=== PATIENT | male | born 1985 | race Caucasian/White ===

== ENCOUNTER 2017-04-12 19:10 | Emergency (ER) | payer SELFPAY ==
[~2017-04-12] VITALS: Ht 182.9 cm; Wt 111.0 kg
[2017-04-12] MEDS ORDERED: SODIUM CHLORIDE 0.9% 1,000 ML IV ONE (19:48)
[2017-04-12 20:12] LABS: BASOPHILS % 0.2 % (0.0-2.0); EOSINOPHILS % 0.2 % (0.0-5.0); HEMATOCRIT. 44.7 % (42.0-52.0); HEMOGLOBIN. 15.8 g/dL (14.0-18.0); LYMPHOCYTES % 42.9 % (20.0-50.0); MEAN CORPUSCULAR HEMOGLOBIN 31.1 pg (28.0-32.0); MEAN PLATELET VOLUME 7.8 fl (7.4-10.4); MONOCYTES % 7.7 % (2.0-8.0); PLATELET 129 x1000/uL (130-400); RED BLOOD CELL COUNT 5.08 mill/uL (4.7-6.1); RED CELL DISTRIBUTION WIDTH 13.7 % (11.6-14.6)
[2017-04-12 20:16] LABS: CHLORIDE 109 mEq/L (98-107)
[2017-04-12 20:17] LABS: INR 1.1; PROTHROMBIN TIME 11.9 sec
[2017-04-12 20:26] LABS: CARBON DIOXIDE 26 mEq/L (21-32); CREATINE KINASE 336 IU/L (39-308)
[2017-04-12 20:27] LABS: PHENOBARBITAL < 2.1 ug/mL (15.0-40.0); PHENYTOIN < 0.4 ug/mL (10-20); VALPROIC ACID < 3.0 ug/mL (50-100)
[2017-04-12 20:30] LABS: CARBAMAZEPINE < 0.5 ug/mL (4-12); ETHANOL BLOOD 459 mg/dL
[2017-04-12] MEDS ORDERED: POTASSIUM CHLORIDE 20MEQ TABLET SR PO ONE (22:00)
[2017-04-12] MEDS ORDERED: SODIUM CHLORIDE 0.9% 1000ML BAG (SEPSIS BOLUS) IV ONE (23:15)
[2017-04-12 23:43] LABS: CLARITY URINE CLEAR (CLEAR); COLOR URINE YELLOW (YELLOW); GLUCOSE URINE NEGATIVE (NEGATIVE); KETONES URINE NEGATIVE (NEGATIVE); LEUKOCYTE ESTERASE URINE NEGATIVE (NEGATIVE); NITRITE URINE NEGATIVE (NEGATIVE); OCCULT BLOOD URINE NEGATIVE (NEGATIVE); PH URINE 7.5 (4.5-8.0); PROTEIN URINE NEGATIVE (NEGATIVE)
[2017-04-13] MEDS ORDERED: ACETAMINOPHEN 325MG TABLET PO ONE (00:15)
[2017-04-13] MEDS ORDERED: PHENYTOIN SODIUM 1,000 MG in SODIUM CHLORIDE 0.9% 100 ML IV ONE (00:15)
[2017-04-13 00:25] VITALS: BP 117/75
[2017-04-13 00:25] LABS: *AMPHETAMINES SCREEN URINE NEGATIVE (NEGATIVE); *BARBITURATES SCREEN URINE NEGATIVE (NEGATIVE); *BENZODIAZEPINES SCREEN URINE NEGATIVE (NEGATIVE); *COCAINE SCREEN URINE NEGATIVE (NEGATIVE); CANNABINOID URINE SCREEN NEGATIVE (NEGATIVE); METHADONE URINE SCREEN NEGATIVE (NEGATIVE); OPIATES URINE SCREEN NEGATIVE (NEGATIVE); PHENCYCLIDINE URINE SCREEN NEGATIVE (NEGATIVE)
== END 2017-04-13 02:39 | disposition home or self-care (01) ==
LOC: ER 20:35
DX: R56.9 Unspecified convulsions (principal); F10.129 Alcohol abuse with intoxication, unspecified; E87.6 Hypokalemia; Z91.14 Patient's other noncompliance with medication regimen
CPT/HCPCS: 36415; 70450; 71010; 72125; 80053; 80156; 80165; 80184; 80185; 80305; 81003; 82550; 83605; 85025; 85610; 93005; 96361; 96365; 96366; 99285; G0482; J1165; J7030; Z7610; J7050

== ENCOUNTER 2017-05-12 15:58 | Emergency (ER) | payer MEDICAID ==
[~2017-05-12] VITALS: Ht 175.3 cm; Wt 80.0 kg
[2017-05-12 16:00] VITALS: BP 149/90
== END 2017-05-12 16:51 | disposition left against medical advice (07) ==
LOC: ER 16:36
DX: S01.01XA Laceration without foreign body of scalp, initial encounter (principal); X58.XXXA Exposure to other specified factors, initial encounter; Y93.89 Activity, other specified; Y92.89 Other specified places as the place of occurrence of the external cause; Y99.8 Other external cause status
CPT/HCPCS: 99283